=== PATIENT | female | born 1990 | race African-American/Black ===

== ENCOUNTER 2017-09-03 17:50 | Inpatient (IN) | payer OTHER ==
[2017-09-03] MEDS: ELECTROLYTE-148 SOLN 1,000 ML IV SCH (18:15)
[2017-09-03] MEDS ORDERED: AMPICILLIN - 2 GM in SODIUM CHLORIDE 100 ML IVPB ONE (18:36)
[2017-09-03] MEDS ORDERED: AMPICILLIN SODIUM 2 GM VIAL ONE ×2 (18:39→19:37)
[2017-09-03 18:48] VITALS: BMI 35.7
[2017-09-03] MEDS ORDERED: PROMETHAZINE HCL 25 MG/1 ML VIAL IVPUSH ONE (19:00)
[2017-09-03] MEDS ORDERED: BUTORPHANOL TARTRATE 1 MG/ML VIAL IVPB ONE (19:00)
[2017-09-03] MEDS ORDERED: TUBERCULIN PPD 5 TU/0.1ML SYRINGE (IN PATIENT USE ONLY) ID ONE (19:15)
[2017-09-03] MEDS ORDERED: OXYTOCIN 20 UNITS in 0.9% NS 20 UNIT/1,000 ML INFUS.BAG IV ONE ×2 (19:34→21:09)
[2017-09-03] MEDS ORDERED: LIDOCAINE HCL 1% PRESERVATIVE FREE - 30ML VIAL ONE (19:35)
--- NOTE | 2017-09-03 19:45 | HP ---
Past Medical History - Admission Chief Complaint: Pt complains of painful contractions. History Source: Patient, Medical Record - Past Medical History Cardiovascular: No: AFIB, HTN Pulmonary: No: Asthma Reproductive: No: Ectopic , Endometriosis, PID, Polycystic Ovary Syndrome ...: 2 ...Para: 1 ...Term: 1 ...: 0 ...Spon : 0 ...Induced : 0 ...Multiple Gestation: 0 ...LMP: 11/29/16 ... Weeks Gestation by Dates: 39.5 ...EDC by Dates: 09/04/17 ...EDC by Sono: 09/01/17 Heme/Onc: No: Anemia Psych: No: Anxiety, Bipolar, Depression - Past Surgical History Past Surgical History: Yes: None Hx Myomectomy: No Hx Transabdominal Cerclage: No - Smoking History Smoking history: Never smoked Have you smoked in the past 12 months: No - Alcohol/Substance Use Hx Alcohol Use: No History of Substance Use: reports: None - Social History Usual Living Arrangement: Yes: With Spouse ADL: Independent History of Recent Travel: No Home Medications - Allergies Allergies/Adverse Reactions: Allergies Allergy/AdvReac Type Severity Reaction Status Date / Time No Known Allergies Allergy Verified 09/03/17 18:53 - Home Medications Home Medications: Ambulatory Orders Tablet 1 tab PO DAILY 09/03/17 Review of Systems - Review of Systems Constitutional: reports: No Symptoms Eyes: reports: No Symptoms HENT: reports: No Symptoms Neck: reports: No Symptoms Cardiovascular: reports: No Symptoms Respiratory: reports: No Symptoms Gastrointestinal: reports: No Symptoms Genitourinary: reports: No Symptoms Breasts: reports: No Symptoms Reported Musculoskeletal: reports: No Symptoms Integumentary: reports: No Symptoms Neurological: reports: No Symptoms Endocrine: reports: No Symptoms Hematology/Lymphatic: reports: No Symptoms Psychiatric: reports: No Symptoms Physical Exam - Maternity Vital Signs: Vital Signs Temperature 99.2 F 09/03/17 17:50 Pulse Rate 94 H 09/03/17 17:50 Respiratory Rate 20 09/03/17 17:50 Blood Pressure 121/76 09/03/17 17:50 O2 Sat by Pulse Oximetry (%) Constitutional: Yes: Well Nourished, No Distress, Calm Eyes: Yes: Conjunctiva Clear HENT: Yes: WNL Lungs: Clear to auscultation Breast(s): Yes: WNL - Abdominal Exam/OB Number of Fetuses: Single Presentation: Vertex Contractions: Yes Regularity: Regular Intensity: Strong Heart Rate (range): 150 Category: II Decelerations: Variable - Vaginal Exam/OB Vaginal Bleediing: No Dilatation (cm): 9.5 Effacement (%): 100 Amniotic Membrane Status: Intact Presentation: Vertex/Position Station: -2 - Physical Exam Psychiatric: Yes: Alert, Oriented Assessment/Plan 26 y/o with SIUP at 40 weeks gestation, active labor FHTS cat 1 upon admission, now category 2 pt dilated 9.5cm to begin pushing soon anticipate
[2017-09-03 19:56] LABS: BASO % 0.4 % (0-2.0); EOS % 0.2 % (0-4.5); HEMATOCRIT 43.5 % (32.4-45.2); HEMOGLOBIN 14.6 GM/dL (10.7-15.3); LYMPH % 13.9 % (8-40); MCH 30.1 pg (25.7-33.7); MCHC 33.6 g/dl (32.0-36.0); MEAN CELL VOLUME 89.7 fl (80-96); MEAN PLT VOLUME 9.3 fl (7.5-11.1); MONO % 6.1 % (3.8-10.2); NEUT % 79.4 % (42.8-82.8); PLATELET COUNT 255 K/MM3 (134-434); RBC 4.84 M/mm3 (3.60-5.2); RDW 13.4 % (11.6-15.6); WHITE BLOOD COUNT 10.8 K/mm3 (4.0-10.0)
[2017-09-03 20:07] LABS: INR 0.92 (0.82-1.09); PROTHROMBIN TIME (PATIENT) 10.4 SEC (9.7-13.0)
[2017-09-03 20:23] LABS: ANION GAP 9 (8-16); BLOOD UREA NITROGEN 9 mg/dL (7-18); CALCIUM 9.1 mg/dL (8.5-10.1); CHLORIDE 103 mmol/L (98-107); CO2 26 mmol/L (21-32); CREATININE 0.6 mg/dL (0.55-1.02); GLUCOSE,RANDOM 112 mg/dL (74-106); POTASSIUM 3.8 mmol/L (3.5-5.1); SODIUM 138 mmol/L (136-145)
--- NOTE | 2017-09-03 20:26 | PN ---
Delivery - Delivery Vaginal Delivery: Shoulder/Difficult Maneuvers: cinthya, suprapubic Type of Anesthesia: Local Episiotomy/Laceration: 2nd degree EBL (cc): 250 Delivery, Single - Stages of Labor Date of Delivery: 09/03/17 Time of Delivery: 19:58 Date Placenta Delivered: 09/03/17 Time Placenta Delivered: 20:06 Placenta: Yes: Spontaneous - Condition of Security Administrator/Pelts Skinner Present: No Gender: Male Weight: 8 lb 11 oz Position: Right, OA - 1 Minute Total Score: 4 5 Minutes Total Score: 8 - Feeding Plan Initial Plan: Exclusive throughout hospitalization Remarks - Remarks Remarks: Normal vaginal delivery of baby boy from DEREK position shoulder dystocia requiring cinthya and suprapubic pressure for delivery anterior shoulder (Left) delivered after above maneuvers along with remainder of cord clamped and cut and baby taken to warmer to be assessed by nursery staff where Apgars 4/8 assigned placenta delivered with 3VC, in tact 2nd degree lac repaired with 2-0 chromic suture sponge count correct mom stable baby to NICU
[2017-09-03] MEDS ORDERED: BENZOCAINE 20% 57 GM BOTTLE TP PRN (20:29)
[2017-09-03] MEDS ORDERED: BISACODYL 10 MG SUPP.RECT RC PRN (20:29)
[2017-09-03] MEDS ORDERED: WITCH HAZEL 50% (TUCKS) 40 PAD/JAR PAD TP PRN (20:29)
[2017-09-03] MEDS ORDERED: ACETAMINOPHEN 325 MG TABLET (FP) PO PRN (20:29)
[2017-09-03] MEDS ORDERED: IBUPROFEN 600 MG TABLET (FP) PO PRN (20:29)
[2017-09-03] MEDS ORDERED: BENZOCAINE 28 GM HEMORRHOIDAL OINTMENT TP PRN (20:29)
[2017-09-03] MEDS ORDERED: METHYLERGONOVINE MALEATE 0.2 MG/1 ML AMP IM PRN (20:29)
[2017-09-03] MEDS ORDERED: OXYTOCIN 20 UNITS in 0.9% NS 20 UNIT/1,000 ML INFUS.BAG IV SCH (20:45)
[2017-09-03] MEDS ORDERED: DIPHTH,PERTUSS(ACELL),TET 0.5 ML DISP.SYRIN IM ONE (22:29)
[2017-09-03] MEDS ORDERED: AMPICILLIN - 1 GM in SODIUM CHLORIDE 100 ML IVPB SCH (22:45)
--- NOTE | 2017-09-04 07:14 | PN ---
Post Progress Note - Subjective Subjective: PT seen/evaluated and doing well. Pain controlled, tolerating diet. Lochia Rubra moderate overnight, still on IV pitocin. Tolerating diet, voiding and ambulating. No CP/SOB/F/C/MCGINNIS. Type of Delivery: Vital Signs: Vital Signs Temperature 98.7 F 09/04/17 05:00 Pulse Rate 83 09/04/17 05:00 Respiratory Rate 18 09/04/17 05:00 Blood Pressure 119/68 09/04/17 05:00 O2 Sat by Pulse Oximetry (%) Uterus: Yes: Fundus Firm Abdomen/GI: Yes: Abdomen soft Lochia: Yes: Rubra Lochia, amount: Moderate Extremities: Yes: Calves non-tender. No: Edema Perineum: Yes: Laceration (2nd degree repaired) Activity: Ambulating - Labs Labs: CBC WBC 10.8 K/mm3 (4.0-10.0) H 09/03/17 19:35 RBC 4.84 M/mm3 (3.60-5.2) 09/03/17 19:35 Hgb 14.6 GM/dL (10.7-15.3) 09/03/17 19:35 Hct 43.5 % (32.4-45.2) 09/03/17 19:35 MCV 89.7 fl (80-96) 09/03/17 19:35 MCH 30.1 pg (25.7-33.7) 09/03/17 19:35 MCHC 33.6 g/dl (32.0-36.0) 09/03/17 19:35 RDW 13.4 % (11.6-15.6) 09/03/17 19:35 Plt Count 255 K/MM3 (134-434) 09/03/17 19:35 MPV 9.3 fl (7.5-11.1) 09/03/17 19:35 Absolute Neuts (auto) 8.6 # 09/03/17 19:35 Neutrophils % 79.4 % (42.8-82.8) 09/03/17 19:35 Lymphocytes % 13.9 % (8-40) 09/03/17 19:35 Monocytes % 6.1 % (3.8-10.2) 09/03/17 19:35 Eosinophils % 0.2 % (0-4.5) 09/03/17 19:35 Basophils % 0.4 % (0-2.0) 09/03/17 19:35 Nucleated RBC % 0 % (0-0) 09/03/17 19:35 Problem List - Problems (1) Vaginal delivery Code(s): O80 - ENCOUNTER FOR FULL-TERM UNCOMPLICATED DELIVERY Assessment/Plan 26 PPD#1 s/p normal AFVSS CBC pending regular diet PO pain meds routine care
[2017-09-04 09:37] LABS: BASO % 0.5 % (0-2.0); EOS % 0.1 % (0-4.5); HEMATOCRIT 35.5 % (32.4-45.2); HEMOGLOBIN 11.9 GM/dL (10.7-15.3); LYMPH % 11.8 % (8-40); MCH 30.3 pg (25.7-33.7); MCHC 33.5 g/dl (32.0-36.0); MEAN CELL VOLUME 90.5 fl (80-96); MEAN PLT VOLUME 9.3 fl (7.5-11.1); MONO % 5.8 % (3.8-10.2); NEUT % 81.8 % (42.8-82.8); PLATELET COUNT 220 K/MM3 (134-434); RBC 3.92 M/mm3 (3.60-5.2); RDW 13.4 % (11.6-15.6); WHITE BLOOD COUNT 11.7 K/mm3 (4.0-10.0)
[2017-09-04] MEDS ORDERED: DIPHTH,PERTUSS(ACELL),TET 0.5 ML DISP.SYRIN IM ONE (10:00)
[2017-09-04] MEDS: PRENATAL VITAMINS W/ FOLIC ACID TABLET (FP) PO SCH (10:06)
[2017-09-04] MEDS ORDERED: SENNOSIDES/DOCUSATE COMBO (SENNA PLUS) TABLET (UD) PO PRN (22:00)
[2017-09-05] MEDS: ELECTROLYTE-148 SOLN 1,000 ML IV SCH (02:30)
[2017-09-05] MEDS: PRENATAL VITAMINS W/ FOLIC ACID TABLET (FP) PO SCH (09:58)
[2017-09-05 11:01] VITALS: BP 131/60; PULSE 101; TEMP 98.8
== END 2017-09-05 12:05 | disposition home or self-care (01) | DRG 560 ==
LOC: JLDR 17:50 → J3W 21:40
PROVIDERS: ADMIT Obstetrics & Gynecology; ATTEND Obstetrics & Gynecology
PROC: 0KQM0ZZ Repair Perineum Muscle, Open Approach (ICD-10-PCS; principal; 2017-09-03)
PROC: 10E0XZZ Delivery of Products of Conception, External Approach (ICD-10-PCS; 2017-09-03)
DX: O66.0 Obstructed labor due to shoulder dystocia (principal); O70.1 Second degree perineal laceration during delivery; Z3A.40 40 weeks gestation of pregnancy; Z37.0 Single live birth
CPT/HCPCS: 36415; 59409; 80048; 85025; 85610; 85730; 86593; 86850; 86900; 86901; 90715

== ENCOUNTER 2022-11-29 09:49 | Emergency (ER) | payer OTHER ==
[2022-11-29 10:09] VITALS: BP 137/84; PULSE 77; RESP 17; TEMP 99; BMI 29.9
[2022-11-29] MEDS ORDERED: DEXTROSE 5%-NORMAL SALINE 1,000 ML IV ONE (10:22)
[2022-11-29 11:44] LABS: BASO % 0.4 % (0-2.0); EOS % 0.1 % (0-4.5); HEMATOCRIT 36.3 % (32.4-45.2); HEMOGLOBIN 12.9 GM/dL (10.7-15.3); MCH 29.4 pg (25.7-33.7); MCHC 35.5 g/dl (32.0-36.0); MEAN CELL VOLUME 82.7 fl (80-96); MEAN PLT VOLUME 8.3 fl (7.5-11.1); MONO % 8.9 % (3.8-10.2); NEUT % 74.6 % (42.8-82.8); PLATELET COUNT 390 10^3/uL (134-434); RBC 4.39 M/mm3 (3.60-5.2); WHITE BLOOD COUNT 8.4 K/mm3 (4.0-10.0)
[2022-11-29] MEDS ORDERED: PYRIDOXINE HCL 100 MG/1 ML VIAL IVPB ONE (11:46)
[2022-11-29 11:53] LABS: EPI CELLS >36 /uL (0-25.1); HYALINE CASTS 12 /uL (0-3.1); URINE APPEARANCE CLOUDY; URINE BACTERIA >9,000 /uL (0-1359); URINE BILIRUBIN 2+ (NEGATIVE); URINE COLOR DK YELLOW; URINE GLUCOSE (UA) NEGATIVE (NEGATIVE); URINE KETONE 4+ (NEGATIVE); URINE LEUK ESTERASE 1+ (NEGATIVE); URINE NITRITE NEGATIVE (NEGATIVE); URINE PROTEIN 1+ (NEGATIVE); URINE WBC 283 /uL (0-25.8)
[2022-11-29 12:11] LABS: POTASSIUM 3.3 mmol/L (3.5-5.1)
[2022-11-29 12:14] LABS: CALCIUM 9.5 mg/dL (8.5-10.1)
[2022-11-29 12:15] LABS: ALBUMIN 3.8 g/dl (3.4-5.0); BLOOD UREA NITROGEN 7.3 mg/dL (7-18); MAGNESIUM 2.2 mg/dL (1.8-2.4)
[2022-11-29 12:18] LABS: CREATININE 0.5 mg/dL (0.55-1.3)
[2022-11-29 12:19] LABS: BILIRUBIN,TOTAL 0.8 mg/dL (0.2-1)
[2022-11-29 12:20] LABS: TOT PROT 8.8 g/dl (6.4-8.2)
[2022-11-29 12:46] LABS: URINE RBC NONE SEEN /uL (0-23.9)
[2022-11-29] MEDS ORDERED: ONDANSETRON 4 MG/2 ML VIAL IVPUSH ONE (13:34)
[2022-11-29] MEDS ORDERED: ONDANSETRON 4 MG/2 ML VIAL ONE (13:53)
[2022-11-29] MEDS ORDERED: ONDANSETRON HCL 4 MG/5 ML UD CUPS ONE (13:53)
[2022-11-29 14:22] LABS: EPI CELLS 32 /uL (0-25.1); HYALINE CASTS 2 /uL (0-3.1); URINE APPEARANCE CLEAR; URINE BACTERIA 936 /uL (0-1359); URINE BILIRUBIN 1+ (NEGATIVE); URINE COLOR DK YELLOW; URINE GLUCOSE (UA) TRACE (NEGATIVE); URINE KETONE TRACE (NEGATIVE); URINE LEUK ESTERASE TRACE (NEGATIVE); URINE NITRITE NEGATIVE (NEGATIVE); URINE PROTEIN TRACE (NEGATIVE); URINE RBC 49 /uL (0-23.9); URINE UROBILINOGEN 4.0 E.U/dl mg/dL (0.2-1.0); URINE WBC 12 /uL (0-25.8)
[2022-11-30] MEDS ORDERED: PYRIDOXINE HCL 100 MG/1 ML VIAL IVPB ONE (10:26)
== END 2022-11-29 15:26 | disposition home or self-care (01) ==
LOC: JER 09:49
PROC: 3E033GC Introduction of Other Therapeutic Substance into Peripheral Vein, Percutaneous Approach (ICD-10-PCS; principal; 2022-11-29)
PROC: 3E033GC Introduction of Other Therapeutic Substance into Peripheral Vein, Percutaneous Approach (ICD-10-PCS; 2022-11-29)
PROC: 3E033GC Introduction of Other Therapeutic Substance into Peripheral Vein, Percutaneous Approach (ICD-10-PCS; 2022-11-29)
DX: O21.0 Mild hyperemesis gravidarum (principal); O26.891 Other specified pregnancy related conditions, first trimester; R68.2 Dry mouth, unspecified; O23.41 Unspecified infection of urinary tract in pregnancy, first trimester; R82.71 Bacteriuria; Z3A.01 Less than 8 weeks gestation of pregnancy
CPT/HCPCS: 36415; 80053; 81003; 83690; 83735; 85025; 87086; 99284-25